=== PATIENT | female | born 1995 | race Hispanic/Latino ===

== ENCOUNTER 2022-02-10 01:46 | Emergency (ER) | payer SELFPAY ==
[2022-02-10] MEDS ORDERED: Acetaminophen 325 MG TAB ONE (02:06)
[2022-02-10] MEDS ORDERED: Acetaminophen 500 MG TAB ONE (02:23)
[2022-02-10] MEDS ORDERED: Ibuprofen 200 MG TAB ONE (02:23)
[2022-02-10] MEDS ORDERED: Dexamethasone 10 MG/ML VIAL ONE (02:23)
[2022-02-10] MEDS ORDERED: Bicillin CR 1.2 MILL UNITS/2 ML SYRINGE IM SCH (02:30)
== END 2022-02-10 02:59 | disposition home or self-care (01) ==
LOC: CSHERS 01:46
DX: J02.9 Acute pharyngitis, unspecified (principal); F17.200 Nicotine dependence, unspecified, uncomplicated
CPT/HCPCS: 96372; 99282; J0558; J1100